=== PATIENT | female | born 1940 | race Caucasian/White ===

== ENCOUNTER → 2016-12-19 | Outpatient (CLI) | payer MEDICARE ==
[~2016-12-19] MED LIST: AMLO5TAB2 PO; ASCO10004 PO; ASPI-496 PO; CAPT100T2 PO; CARV6.2512 PO; CHOL10003 PO; GABA-826 PO; HYDR12.53 PO; INSU100V8 SQ; LISI-170 PO; LISI40TA PO; MECL25TA4 PO; METF10002 PO; METO50TA82 PO; OMEP-110 PO; RANI300T PO; SIMV20TA3 PO
[2016-12-19 10:16] LABS: PATH.CAST-FLAG NOT PRESENT; SPERM-FLAG NOT PRESENT; SRC-FLAG NOT PRESENT; XTAL-FLAG NOT PRESENT; YLC-FLAG NOT PRESENT
[2016-12-19 10:21] LABS: ASPARTATE AMINO TRANSFERASE 15 U/L (15-37); BLOOD UREA NITROGEN 22 mg/dL (7-18)
== END | disposition home or self-care (01) ==
LOC: STAR 08:34
PROVIDERS: ATTEND Orthopaedic Surgery
DX: Z01.818 Encounter for other preprocedural examination (principal); R94.31 Abnormal electrocardiogram [ECG] [EKG]; M17.12 Unilateral primary osteoarthritis, left knee; E11.9 Type 2 diabetes mellitus without complications; K21.9 Gastro-esophageal reflux disease without esophagitis; M81.0 Age-related osteoporosis without current pathological fracture; Z79.899 Other long term (current) drug therapy
CPT/HCPCS: 36415; 80053; 81001; 85025; 87077; 87081; 87086; 93005

== ENCOUNTER 2017-03-07 12:16 | Emergency (ER) | payer MEDICARE ==
[~2017-03-07] VITALS: Ht 152.4 cm; Wt 57.0 kg
[~2017-03-07 12:16] MED LIST changes: +ACET-1600 PO; +ASPI325T80 PO; +CELE200C PO; +CIPR500T87 PO; +DOCU-131 PO; +GABA600T2 PO; +HYDR-3240 PO
[2017-03-07] MEDS ORDERED: MORPHINE SULFATE 4 MG/ML, 1ML IVPush PRN (13:00)
[2017-03-07] MEDS ORDERED: SODIUM CHLORIDE 0.9% 1,000ML IVBOLUS ONE (13:00)
[2017-03-07] MEDS ORDERED: SODIUM CHLORIDE FLUSH 10ML SYR IVF ONE (13:00)
[2017-03-07] MEDS ORDERED: ONDANSETRON 2MG/ML, 2ML IVPush ONE (13:00)
[2017-03-07 13:34] LABS: PATH.CAST-FLAG NOT PRESENT; SPERM-FLAG NOT PRESENT; SRC-FLAG NOT PRESENT; XTAL-FLAG NOT PRESENT; YLC-FLAG NOT PRESENT
[2017-03-07 13:41] LABS: HEMATOCRIT 40.6 % (34.6-47.8); HEMOGLOBIN 13.3 g/dL (11.7-16.4); WHITE BLOOD COUNT 6.1 x10^3/uL (3.4-10)
[2017-03-07 13:47] LABS: BLOOD UREA NITROGEN 19 mg/dL (7-18)
[2017-03-07 13:54] LABS: ASPARTATE AMINO TRANSFERASE 15 U/L (15-37)
[2017-03-07 13:55] LABS: IS PT STATUS REG ER OR PRE ER? YES
[2017-03-07] MEDS ORDERED: MORPHINE SULFATE 4 MG/ML, 1ML ONE (14:02)
[2017-03-07] MEDS ORDERED: ONDANSETRON 2MG/ML, 2ML ONE (14:02)
[2017-03-07] MEDS ORDERED: ASPI-496 PO (14:12)
[2017-03-07 15:58] VITALS: BP 153/75
== END 2017-03-07 16:01 | disposition home or self-care (01) ==
LOC: ED 15:50
DX: K29.70 Gastritis, unspecified, without bleeding (principal)
CPT/HCPCS: 36415; 74177; 80053; 81001; 83690; 84484; 85025; 85610; 87086; 93005; 96361; 96374; 96375; 99285; J2405; J7030

== ENCOUNTER 2017-10-21 21:55 | Emergency (ER) | payer MEDICARE ==
[~2017-10-21] VITALS: Ht 157.5 cm; Wt 62.3 kg
[2017-10-21 22:26] LABS: BASOPHILS # (AUTO) 0.02 x10^3/uL (0-0.1); BASOPHILS % (AUTO) 0 % (0-1); EOSINOPHILS % (AUTO) 3 % (1-7); LYMPHOCYTES # (AUTO) 1.79 x10^3/uL (1-3.4); LYMPHOCYTES % (AUTO) 25 % (22-44); MD NO; MEAN CORPUSCULAR HEMOGLOBIN 28.4 pg (27.0-34.8); MEAN CORPUSCULAR HGB CONC 32.8 g/dL (32.4-35.8); MEAN CORPUSCULAR VOLUME 86.5 fL (80-100); MEAN PLATELET VOLUME 10.1 fL (7.4-10.4); MONOCYTES # (AUTO) 0.65 x10^3/uL (0.2-0.8); MONOCYTES % (AUTO) 9 % (2-9); NEUTROPHILS # (AUTO) 4.56 x10^3/uL (1.8-6.8); NEUTROPHILS % (AUTO) 63 % (42-75); PLATELET COUNT 228 x10^3/uL (130-400); RED BLOOD COUNT 5.12 x10^6/uL (3.82-5.3); RED CELL DISTRIBUTION WIDTH 14.8 % (9.6-15.2)
[2017-10-21] MEDS ORDERED: LIDOCAINE-MPF 1%, 5ML INFIL ONE ×2 (22:30→23:00)
[2017-10-21 22:38] LABS: ALBUMIN 3.8 g/dL (3.4-5.0); ANION GAP 5 mmol/L (5-15); CALCIUM 9.7 mg/dL (8.5-10.1); CHLORIDE 105 mmol/L (98-107); CREATININE 1.15 mg/dL (0.55-1.02)
[2017-10-21 22:43] LABS: TROPONIN I < 0.015 ng/mL (0.000-0.045)
[2017-10-21] MEDS ORDERED: LIDOCAINE-MPF 1%, 5ML ONE ×2 (22:55→23:14)
[2017-10-21] MEDS ORDERED: METOPROLOL 1 MG/ML, 5ML ONE (23:14)
[2017-10-21] MEDS: METOPROLOL 1 MG/ML, 5ML IVPush PRN (23:36)
[2017-10-22] MEDS ORDERED: METOPROLOL 1 MG/ML, 5ML ONE (00:22)
[2017-10-22] MEDS: METOPROLOL 1 MG/ML, 5ML IVPush PRN (00:36)
[2017-10-22 01:50] VITALS: BP 169/72
== END 2017-10-22 01:55 | disposition home or self-care (01) ==
LOC: ED 10-22 00:02
DX: S61.213A Laceration without foreign body of left middle finger without damage to nail, initial encounter (principal); I11.0 Hypertensive heart disease with heart failure; E11.9 Type 2 diabetes mellitus without complications; I50.9 Heart failure, unspecified; K21.9 Gastro-esophageal reflux disease without esophagitis; E78.5 Hyperlipidemia, unspecified; Z85.9 Personal history of malignant neoplasm, unspecified; Z90.49 Acquired absence of other specified parts of digestive tract; Z95.0 Presence of cardiac pacemaker; Z90.710 Acquired absence of both cervix and uterus; W26.8XXA Contact with other sharp object(s), not elsewhere classified, initial encounter; Y93.89 Activity, other specified; Y92.89 Other specified places as the place of occurrence of the external cause; Y99.8 Other external cause status
CPT/HCPCS: 12041; 36415; 71045; 80048; 82040; 84484; 85025; 93005; 96374; 96376

== ENCOUNTER 2017-10-30 16:03 | Emergency (ER) | payer MEDICARE ==
[~2017-10-30] VITALS: Ht 157.5 cm; Wt 62.0 kg
[2017-10-30 16:08] VITALS: BP 194/62
== END 2017-10-30 16:48 | disposition home or self-care (01) ==
LOC: ED 16:45
DX: S61.213D Laceration without foreign body of left middle finger without damage to nail, subsequent encounter (principal); E11.9 Type 2 diabetes mellitus without complications; E78.5 Hyperlipidemia, unspecified; Z48.02 Encounter for removal of sutures
CPT/HCPCS: 99282

== ENCOUNTER 2018-09-15 18:58 | Observation (INO) | payer MEDICARE, MEDICAID ==
[~2018-09-15] VITALS: Ht 157.5 cm; Wt 63.5 kg
[~2018-09-15 18:58] MED LIST changes: +AMLO-150 PO; -AMLO5TAB2 PO; -GABA600T2 PO; +GABA600T7 PO; +HYDR12.517 PO; -HYDR12.53 PO
--- NOTE | 2018-09-15 19:15 | NUR ---
Assumed care of patient. C/O epigastric pain radiating across the ABD to back. [facility] gave patient nitro x 2, which brought her pain from a 10 to a 7. 324mg ASA admin by [facility]. EKG done. Placed on NIBP, pulseox and hall monitor. Will continue to monitor.
[2018-09-15 19:25] LABS: BASOPHILS # (AUTO) 0.02 x10^3/uL (0-0.1); BASOPHILS % (AUTO) 0 % (0-1); EOSINOPHILS # (AUTO) 0.13 x10^3/uL (0-0.4); EOSINOPHILS % (AUTO) 1 % (1-7); LYMPHOCYTES # (AUTO) 0.72 x10^3/uL (1-3.4); LYMPHOCYTES % (AUTO) 7 % (22-44); MD NO; MEAN CORPUSCULAR HEMOGLOBIN 29.5 pg (27.0-34.8); MEAN CORPUSCULAR HGB CONC 33.3 g/dL (32.4-35.8); MEAN CORPUSCULAR VOLUME 88.6 fL (80-100); MEAN PLATELET VOLUME 10.1 fL (7.4-10.4); MONOCYTES # (AUTO) 0.71 x10^3/uL (0.2-0.8); MONOCYTES % (AUTO) 7 % (2-9); NEUTROPHILS # (AUTO) 8.37 x10^3/uL (1.8-6.8); NEUTROPHILS % (AUTO) 84 % (42-75); PLATELET COUNT 178 x10^3/uL (130-400); RED BLOOD COUNT 4.79 x10^6/uL (3.82-5.3); RED CELL DISTRIBUTION WIDTH 14.3 % (9.6-15.2)
[2018-09-15 19:34] LABS: ALANINE AMINOTRANSFERASE 60 U/L (12-78); ALBUMIN 3.6 g/dL (3.4-5.0); ANION GAP 8 mmol/L (5-15); CALCIUM 8.6 mg/dL (8.5-10.1); CHLORIDE 107 mmol/L (98-107); CREATININE 1.22 mg/dL (0.55-1.02)
[2018-09-15] MEDS ORDERED: ATOR40TA78 PO (19:35)
[2018-09-15] MEDS ORDERED: HYDROCHLOROTH12.5 MG PO (19:35)
[2018-09-15] MEDS ORDERED: METH5TAB6 PO (19:35)
[2018-09-15 19:38] LABS: ALKALINE PHOSPHATASE 63 U/L (45-117); BILIRUBIN,TOTAL 0.4 mg/dL (0.2-1.0); TOTAL PROTEIN 6.3 g/dL (6.4-8.2); TROPONIN I < 0.015 ng/mL (0.000-0.045)
--- NOTE | 2018-09-15 19:52 | NUR ---
x1 assist to the restroom. Steady gait.
--- NOTE | 2018-09-15 20:26 | NUR ---
VSS. Plan is for CTA of the chest for R/O PE.
--- NOTE | 2018-09-15 20:33 | NUR ---
Patient to CTA.
[2018-09-15] MEDS ORDERED: BISACODYL 10 MG SUPP PR PRN (21:30)
[2018-09-15] MEDS ORDERED: ATORVASTATIN 40 MG TABLET PO SCH (21:30)
[2018-09-15] MEDS ORDERED: ONDANSETRON ODT 4 MG PO PRN (21:30)
[2018-09-15] MEDS ORDERED: POLYETHYLENE GLYCOL 17 GM PACKET PO PRN (21:30)
[2018-09-15] MEDS ORDERED: ACETAMINOPHEN 325 MG TABLET PO PRN (21:30)
[2018-09-15] MEDS ORDERED: NITROGLYCERIN 0.4 MG BOTTLE (25 TABS) SL PRN (21:30)
[2018-09-15] MEDS ORDERED: morphine SULFATE 10 MG/ML, 1ML IVPush PRN (21:30)
[2018-09-15 22:10] LABS: HEMOGLOBIN A1C 8.3 % (4.2-6.3)
[2018-09-15 22:23] LABS: FREE T4 (FREE THYROXINE) 0.99 ng/dL (0.76-1.46)
[2018-09-15 22:33] VITALS: BP 150/71
[2018-09-15 22:52] LABS: MICROSCOPIC NOT IND
[2018-09-15 23:05] LABS: CULTURE INDICATED? NO
[2018-09-15] MEDS: METHIMAZOLE 5 MG TAB PO SCH (23:10)
[2018-09-15] MEDS: CARVEDILOL 25 MG TABLET PO SCH (23:10)
[2018-09-15] MEDS: SODIUM CHLORIDE FLUSH 10ML SYR IVF SCH (23:13)
[2018-09-15] MEDS: HEPARIN 5,000 UNITS/ML, 1ML SQ SCH (23:15)
[2018-09-16 00:39] VITALS: BP 143/72
[2018-09-16] MEDS ORDERED: OMNIPAQUE 350 MG/ML, 100ML BOTTLE ONE (01:19)
[2018-09-16 01:27] LABS: TROPONIN I < 0.015 ng/mL (0.000-0.045)
[2018-09-16] MEDS: HEPARIN 5,000 UNITS/ML, 1ML SQ SCH ×2 (05:13→13:30)
[2018-09-16] MEDS ORDERED: ASPIRIN 81 MG TABLET EC PO SCH (06:00)
[2018-09-16] MEDS: INSULIN LISPRO 100 UNITS/ML, PEN SQ-INSULIN SCH ×2 (07:00→12:12)
[2018-09-16 07:39] LABS: TROPONIN I < 0.015 ng/mL (0.000-0.045)
[2018-09-16 07:55] VITALS: BP 174/76
[2018-09-16] MEDS ORDERED: REGADENOSON 0.4 MG/5 ML SYRINGE ONE (08:12)
[2018-09-16] MEDS ORDERED: LISINOPRIL 20 MG TABLET PO SCH (09:00)
[2018-09-16] MEDS ORDERED: SENNA/DOCUSATE TABLET PO SCH (09:00)
[2018-09-16] MEDS: METHIMAZOLE 5 MG TAB PO SCH (09:00)
[2018-09-16] MEDS ORDERED: HYDROCHLOROTHIAZIDE 12.5 MG CAPSULE PO SCH (09:00)
[2018-09-16] MEDS: CARVEDILOL 25 MG TABLET PO SCH (09:07)
[2018-09-16] MEDS: SODIUM CHLORIDE FLUSH 10ML SYR IVF SCH (09:08)
[2018-09-16 12:11] VITALS: BP 161/71
[2018-09-16] MEDS ORDERED: ASPI81TA45 PO (14:11)
== END 2018-09-16 16:15 | disposition home or self-care (01) ==
LOC: ED 20:18 → EDIP 21:40 → 5SO 22:15
PROVIDERS: ADMIT Family Medicine; ATTEND Family Medicine
DX: R07.89 Other chest pain (principal); E03.9 Hypothyroidism, unspecified; E05.90 Thyrotoxicosis, unspecified without thyrotoxic crisis or storm; E11.65 Type 2 diabetes mellitus with hyperglycemia; E78.5 Hyperlipidemia, unspecified; I11.0 Hypertensive heart disease with heart failure; I50.9 Heart failure, unspecified; K21.9 Gastro-esophageal reflux disease without esophagitis; Z79.4 Long term (current) use of insulin; Z83.3 Family history of diabetes mellitus; Z85.3 Personal history of malignant neoplasm of breast; Z86.73 Personal history of transient ischemic attack (TIA), and cerebral infarction without residual deficits; Z90.11 Acquired absence of right breast and nipple; Z90.710 Acquired absence of both cervix and uterus; Z95.0 Presence of cardiac pacemaker
CPT/HCPCS: 36415; 71045; 71275; 78452; 80053; 81003; 82962; 83036; 83690; 84439; 84443; 84484; 85025; 85379; 93005; 93017; 96372; 99284; A9502; C9898; G0378; J1644; J1815; J2785; Q9967

== ENCOUNTER 2018-11-09 02:38 | Inpatient (IN) | payer MEDICARE, MEDICAID ==
[~2018-11-09] VITALS: Ht 160 cm; Wt 62.9 kg
[~2018-11-09 02:38] MED LIST changes: +ASPI81TA45 PO; +ATOR40TA78 PO; +HYDROCHLOROTH12.5 MG PO; +METH5TAB6 PO
--- NOTE | 2018-11-09 02:47 | NUR ---
BIB [facility] FROM HOME WITH C/O ABD PAIN, +N/V THAT STARTED AT 1800 YESTERDAY. PER EMT ON ARRIVAL PT WAS COOL, PALE AND DIAPHORETIC. 12 LEAD EKG SHOWED PACED RHYTHM, PT RECEIVED 324 MG ASPIRIN, 4 MG ZOFRAN AND 50 MCG [facility] RADIOLOGY SCHEDULER. MONITORS APPLIED, SIDERAILS UP X2, CALL LIGHT WITHIN REACH
[2018-11-09] MEDS ORDERED: ONDANSETRON 2MG/ML, 2ML IVPush ONE (03:00)
[2018-11-09] MEDS ORDERED: MORPHINE SULFATE 4 MG/ML, 1ML ONE (03:05)
[2018-11-09] MEDS ORDERED: ONDANSETRON 2MG/ML, 2ML ONE (03:06)
[2018-11-09] MEDS: MORPHINE SULFATE 4 MG/ML, 1ML IVPush PRN ×2 (03:07→07:48)
--- NOTE | 2018-11-09 03:09 | NUR ---
PT MEDICATED PER MAR
[2018-11-09 03:11] LABS: BASOPHILS % (AUTO) 0 % (0-1); EOSINOPHILS # (AUTO) 0.09 x10^3/uL (0-0.4); EOSINOPHILS % (AUTO) 1 % (1-7); LYMPHOCYTES # (AUTO) 0.63 x10^3/uL (1-3.4); LYMPHOCYTES % (AUTO) 8 % (22-44); MD NO; MEAN CORPUSCULAR HEMOGLOBIN 29.8 pg (27.0-34.8); MEAN CORPUSCULAR HGB CONC 32.5 g/dL (32.4-35.8); MEAN CORPUSCULAR VOLUME 91.7 fL (80-100); MONOCYTES # (AUTO) 0.39 x10^3/uL (0.2-0.8); MONOCYTES % (AUTO) 5 % (2-9); NEUTROPHILS # (AUTO) 6.96 x10^3/uL (1.8-6.8); NEUTROPHILS % (AUTO) 86 % (42-75); PLATELET COUNT 211 x10^3/uL (130-400); RED BLOOD COUNT 5.38 x10^6/uL (3.82-5.3); RED CELL DISTRIBUTION WIDTH 13.5 % (9.6-15.2)
[2018-11-09 03:24] LABS: ALBUMIN 4.1 g/dL (3.4-5.0); ANION GAP 5 mmol/L (5-15); CALCIUM 9.6 mg/dL (8.5-10.1); CHLORIDE 103 mmol/L (98-107)
--- NOTE | 2018-11-09 03:24 | NUR ---
urine sample taken to lab
[2018-11-09 03:31] LABS: MICROSCOPIC AUTO
[2018-11-09 03:31] LABS: ALANINE AMINOTRANSFERASE 31 U/L (12-78); ALKALINE PHOSPHATASE 74 U/L (45-117); BILIRUBIN,TOTAL 0.8 mg/dL (0.2-1.0); CREATININE 1.36 mg/dL (0.55-1.02); TOTAL PROTEIN 7.4 g/dL (6.4-8.2); TROPONIN I < 0.015 ng/mL (0.000-0.045)
[2018-11-09 03:35] LABS: CULTURE INDICATED? NO
--- NOTE | 2018-11-09 03:47 | NUR ---
pt to ct
[2018-11-09] MEDS ORDERED: OMNIPAQUE 350 MG/ML, 100ML BOTTLE ONE (03:53)
--- NOTE | 2018-11-09 04:00 | NUR ---
pt resting on gurney, denies needs, monitors in place, call light within reach. awaiting ct result
[2018-11-09] MEDS ORDERED: PROMETHAZINE 25 MG/ML, 1ML IM PRN (05:00)
[2018-11-09] MEDS ORDERED: MORPHINE SULFATE 4 MG/ML, 1ML IVPush PRN (05:00)
[2018-11-09] MEDS ORDERED: DOCUSATE 100 MG CAPSULE PO PRN (05:00)
[2018-11-09] MEDS ORDERED: ONDANSETRON ODT 4 MG PO PRN (05:00)
[2018-11-09] MEDS ORDERED: ACETAMINOPHEN 325 MG TABLET PO PRN (05:00)
[2018-11-09] MEDS ORDERED: ONDANSETRON 2MG/ML, 2ML IVPush PRN ×2 (05:00)
[2018-11-09] MEDS ORDERED: morphine SULFATE 10 MG/ML, 1ML IVPush PRN (05:00)
--- NOTE | 2018-11-09 05:05 | NUR ---
16 FR NG TUBE PLACED TO RIGHT NARES AND SECURED, PT TOLERATED WITHOUT DIFFICULTY, PLACEMENT CHECKED VIA ASPIRATION AND AUSCULTATION. NG TO LIS, JIMENES DRAINAGE NOTED.
[2018-11-09] MEDS: SODIUM CHLORIDE 0.9% 1,000 ML IV SCH ×3 (05:17→20:11)
[2018-11-09] MEDS ORDERED: HEPARIN 5,000 UNITS/ML, 1ML ONE (05:18)
[2018-11-09] MEDS: HEPARIN 5,000 UNITS/ML, 1ML SQ SCH ×3 (05:19→22:00)
[2018-11-09] MEDS ORDERED: ASPIRIN 81 MG TABLET EC PO SCH (06:00)
[2018-11-09 06:02] LABS: FREE T4 (FREE THYROXINE) 1.02 ng/dL (0.76-1.46); THYROID STIMULATING HORMONE 14.1 mIU/L (0.358-3.740)
--- NOTE | 2018-11-09 06:33 | NUR ---
PT RESTING CALMLY, DENIES NEEDS, MONITORS IN PLACE, NG TO LIS, IV FLUIDS INFUSING, CALL LIGHT WITHIN REACH. AWAITING ROOM TO BE CLEANED FOR TRANSFER
--- NOTE | 2018-11-09 06:53 | NUR ---
REPORT GIVEN TO ROBERT SIU
--- NOTE | 2018-11-09 06:55 | NUR ---
Received bedside report from ROBERT Pablo. All questions answered. Pt resting on gurney with PIV fluids infusing per [facility]. Pt connected to NIBP cuff, pulse ox monitor, and cardiac sonographer. NADN. No needs expressed. ED waiting for floor room to be cleaned before pt can transfer to floor. Call light within reach. Bedside rail up for safet measures.
--- NOTE | 2018-11-09 07:19 | NUR ---
Called floor and asked if room 355 was clean and ready. Floor stated "yes". Pt ready to transfer to floor from ED.
--- NOTE | 2018-11-09 07:34 | NUR ---
Assisted pt to bedside commode. AMAIRANI. No other needs expressed. Pt back to [facility].
--- NOTE | 2018-11-09 07:36 | NUR ---
Pt transfered to floor from ED and left with all personal belongings.
[2018-11-09 07:57] VITALS: BP 128/75
[2018-11-09] MEDS: LISINOPRIL 20 MG TABLET PO SCH (09:00)
[2018-11-09] MEDS: CARVEDILOL 25 MG TABLET PO SCH ×2 (09:00→21:00)
[2018-11-09] MEDS ORDERED: METHIMAZOLE 5 MG TAB PO SCH (09:00)
[2018-11-09] MEDS ORDERED: BENZOCAINE 20% SPRAY 0.5ML TP ONE (12:00)
[2018-11-09 15:31] VITALS: BP 167/76
[2018-11-09 17:31] LABS: HEMOGLOBIN A1C 8.1 % (4.2-6.3)
[2018-11-09 19:04] VITALS: BP 185/76
[2018-11-09] MEDS ORDERED: ATORVASTATIN 40 MG TABLET PO SCH (21:00)
[2018-11-10 00:57] VITALS: BP 161/70
[2018-11-10 01:04] VITALS: BP 166/72
[2018-11-10] MEDS: SODIUM CHLORIDE 0.9% 1,000 ML IV SCH (03:53)
[2018-11-10 04:55] LABS: ALBUMIN 3.3 g/dL (3.4-5.0); ANION GAP 8 mmol/L (5-15); CALCIUM 7.9 mg/dL (8.5-10.1); CHLORIDE 115 mmol/L (98-107); CREATININE 1.05 mg/dL (0.55-1.02)
[2018-11-10 04:57] LABS: BASOPHILS # (AUTO) 0.01 x10^3/uL (0-0.1); BASOPHILS % (AUTO) 0 % (0-1); EOSINOPHILS # (AUTO) 0.01 x10^3/uL (0-0.4); EOSINOPHILS % (AUTO) 0 % (1-7); LYMPHOCYTES # (AUTO) 0.75 x10^3/uL (1-3.4); LYMPHOCYTES % (AUTO) 17 % (22-44); MD NO; MEAN CORPUSCULAR HGB CONC 32.7 g/dL (32.4-35.8); MEAN CORPUSCULAR VOLUME 91.8 fL (80-100); MEAN PLATELET VOLUME 9.9 fL (7.4-10.4); MONOCYTES # (AUTO) 0.37 x10^3/uL (0.2-0.8); MONOCYTES % (AUTO) 9 % (2-9); NEUTROPHILS # (AUTO) 3.18 x10^3/uL (1.8-6.8); NEUTROPHILS % (AUTO) 74 % (42-75); PLATELET COUNT 158 x10^3/uL (130-400); RED CELL DISTRIBUTION WIDTH 14.2 % (9.6-15.2)
[2018-11-10 05:02] LABS: ALKALINE PHOSPHATASE 168 U/L (45-117); CHOL/HDL RATIO 1.7; CHOLESTEROL, TOTAL 102 mg/dL (140-239); HDL CHOL % 59 % (28-40); HDL CHOLESTEROL (DIRECT) 60 mg/dL (40-60); LDL CHOLESTEROL,CALCULATED 24 mg/dL (54-169); LDL/HDL RATIO 0.4 (0.5-3.0); TRIGLYCERIDES 89 mg/dL (50-200); VLDL CHOLESTEROL 18 mg/dL (0-25)
[2018-11-10 05:08] LABS: ALANINE AMINOTRANSFERASE 1867 U/L (12-78)
[2018-11-10] MEDS: HEPARIN 5,000 UNITS/ML, 1ML SQ SCH ×3 (06:00→22:06)
[2018-11-10 07:58] VITALS: BP 179/64
[2018-11-10] MEDS: CARVEDILOL 25 MG TABLET PO SCH ×2 (09:00→21:00)
[2018-11-10] MEDS: LISINOPRIL 20 MG TABLET PO SCH (09:00)
[2018-11-10] MEDS: SODIUM CHLORIDE 0.45% 1,000 ML IV SCH ×2 (09:39→17:00)
[2018-11-10 10:17] LABS: SALICYLATE LEVEL < 1.7 mg/dL (2.8-20.0)
[2018-11-10 13:25] VITALS: BP 177/68
[2018-11-10 13:26] LABS: AMPHETAMINE SCREEN, URINE Negative (Negative); BARBITURATE SCREEN, URINE Negative (Negative); BENZODIAZEPINE SCREEN, URINE Negative (Negative); CANNABINOID SCREEN, URINE Negative (Negative); COCAINE SCREEN, URINE Negative (Negative); METHADONE SCREEN, URINE Negative (Negative); OPIATE SCREEN, URINE Negative (Negative)
[2018-11-10] MEDS ORDERED: DEXTROSE 5% IV ONE ×3 (14:00→19:00)
[2018-11-10] MEDS ORDERED: ACETYLCYSTEINE IV ONE ×3 (14:00→19:00)
[2018-11-10 20:00] VITALS: BP 187/76
[2018-11-11 02:52] VITALS: BP 165/76
[2018-11-11 04:54] LABS: BASOPHILS # (AUTO) 0.01 x10^3/uL (0-0.1); BASOPHILS % (AUTO) 0 % (0-1); EOSINOPHILS # (AUTO) 0.01 x10^3/uL (0-0.4); EOSINOPHILS % (AUTO) 0 % (1-7); LYMPHOCYTES # (AUTO) 0.67 x10^3/uL (1-3.4); LYMPHOCYTES % (AUTO) 14 % (22-44); MD NO; MEAN CORPUSCULAR HEMOGLOBIN 30.2 pg (27.0-34.8); MEAN CORPUSCULAR HGB CONC 32.8 g/dL (32.4-35.8); MEAN CORPUSCULAR VOLUME 92.1 fL (80-100); MEAN PLATELET VOLUME 9.6 fL (7.4-10.4); MONOCYTES # (AUTO) 0.44 x10^3/uL (0.2-0.8); MONOCYTES % (AUTO) 9 % (2-9); NEUTROPHILS # (AUTO) 3.84 x10^3/uL (1.8-6.8); NEUTROPHILS % (AUTO) 77 % (42-75); PLATELET COUNT 163 x10^3/uL (130-400); RED BLOOD COUNT 4.29 x10^6/uL (3.82-5.3); RED CELL DISTRIBUTION WIDTH 13.8 % (9.6-15.2)
[2018-11-11 04:56] LABS: INTERNATIONAL NORMALIZED RATIO 1.02 (0.93-1.1); PROTHROMBIN TIME 10.7 Seconds (9.6-11.5)
[2018-11-11 05:05] LABS: ANION GAP 8 mmol/L (5-15); CALCIUM 8.1 mg/dL (8.5-10.1); CHLORIDE 112 mmol/L (98-107)
[2018-11-11 05:13] LABS: ALANINE AMINOTRANSFERASE 1026 U/L (12-78); ALKALINE PHOSPHATASE 125 U/L (45-117); BILIRUBIN,TOTAL 1.1 mg/dL (0.2-1.0); CREATININE 0.79 mg/dL (0.55-1.02); TOTAL PROTEIN 5.9 g/dL (6.4-8.2)
[2018-11-11] MEDS: HEPARIN 5,000 UNITS/ML, 1ML SQ SCH ×2 (05:47→15:36)
[2018-11-11 09:48] VITALS: BP 198/75
[2018-11-11] MEDS: LISINOPRIL 20 MG TABLET PO SCH (09:57)
[2018-11-11] MEDS: CARVEDILOL 25 MG TABLET PO SCH ×2 (09:57→19:46)
[2018-11-11] MEDS: hydrALAzine 20 MG/ML, 1ML IVPush PRN ×2 (09:58→15:36)
[2018-11-11] MEDS: SODIUM CHLORIDE 0.45% 1,000 ML IV SCH ×2 (10:08→18:07)
[2018-11-11 10:15] VITALS: BP 164/84
[2018-11-11 14:56] VITALS: BP 176/71
[2018-11-11 16:48] VITALS: BP 168/67
[2018-11-11 19:51] VITALS: BP 171/89
[2018-11-11] MEDS: OXYcodone IR 5MG TABLET PO PRN (22:10)
[2018-11-12] MEDS: HEPARIN 5,000 UNITS/ML, 1ML SQ SCH ×3 (01:37→16:52)
[2018-11-12 01:46] VITALS: BP 146/69
[2018-11-12] MEDS: SODIUM CHLORIDE 0.45% 1,000 ML IV SCH (02:26)
[2018-11-12 04:46] LABS: BASOPHILS # (AUTO) 0.01 x10^3/uL (0-0.1); BASOPHILS % (AUTO) 0 % (0-1); EOSINOPHILS # (AUTO) 0.08 x10^3/uL (0-0.4); EOSINOPHILS % (AUTO) 2 % (1-7); LYMPHOCYTES # (AUTO) 0.83 x10^3/uL (1-3.4); LYMPHOCYTES % (AUTO) 17 % (22-44); MD NO; MEAN CORPUSCULAR HEMOGLOBIN 30.1 pg (27.0-34.8); MEAN CORPUSCULAR HGB CONC 32.9 g/dL (32.4-35.8); MEAN CORPUSCULAR VOLUME 91.6 fL (80-100); MEAN PLATELET VOLUME 9.9 fL (7.4-10.4); MONOCYTES # (AUTO) 0.44 x10^3/uL (0.2-0.8); MONOCYTES % (AUTO) 9 % (2-9); NEUTROPHILS # (AUTO) 3.48 x10^3/uL (1.8-6.8); NEUTROPHILS % (AUTO) 72 % (42-75); PLATELET COUNT 158 x10^3/uL (130-400); RED BLOOD COUNT 4.31 x10^6/uL (3.82-5.3); RED CELL DISTRIBUTION WIDTH 13.6 % (9.6-15.2)
[2018-11-12 04:56] LABS: CHLORIDE 109 mmol/L (98-107)
[2018-11-12 05:06] LABS: ALANINE AMINOTRANSFERASE 597 U/L (12-78); ALBUMIN 2.8 g/dL (3.4-5.0); ALKALINE PHOSPHATASE 103 U/L (45-117); ANION GAP 8 mmol/L (5-15); BILIRUBIN,TOTAL 1.1 mg/dL (0.2-1.0); CALCIUM 8.2 mg/dL (8.5-10.1); CREATININE 0.77 mg/dL (0.55-1.02); TOTAL PROTEIN 5.4 g/dL (6.4-8.2)
[2018-11-12 06:30] VITALS: BP 162/69
[2018-11-12] MEDS: LISINOPRIL 20 MG TABLET PO SCH (08:48)
[2018-11-12] MEDS: CARVEDILOL 25 MG TABLET PO SCH ×2 (08:48→19:38)
[2018-11-12 14:41] VITALS: BP 132/62
[2018-11-12] MEDS: POTASSIUM CHLORIDE 10 MEQ in D5%-0.45% NACL 1,000 ML IV SCH (16:52)
[2018-11-12] MEDS ORDERED: POTASSIUM CHLORIDE 40 MEQ in SODIUM CHLORIDE 0.9% 500 ML IV ONE (17:00)
[2018-11-12 18:55] VITALS: BP 169/67
[2018-11-13] MEDS: OXYcodone IR 5MG TABLET PO PRN (00:01)
[2018-11-13] MEDS: hydrALAzine 20 MG/ML, 1ML IVPush PRN (00:02)
[2018-11-13 00:35] VITALS: BP 171/79
[2018-11-13 01:20] VITALS: BP 146/69
[2018-11-13] MEDS: POTASSIUM CHLORIDE 10 MEQ in D5%-0.45% NACL 1,000 ML IV SCH ×3 (02:11→22:59)
[2018-11-13] MEDS: HEPARIN 5,000 UNITS/ML, 1ML SQ SCH ×3 (02:11→20:41)
[2018-11-13 05:14] LABS: ALBUMIN 2.8 g/dL (3.4-5.0); ANION GAP 6 mmol/L (5-15); CALCIUM 8.3 mg/dL (8.5-10.1); CHLORIDE 107 mmol/L (98-107)
[2018-11-13 05:17] LABS: ALANINE AMINOTRANSFERASE 372 U/L (12-78); ALKALINE PHOSPHATASE 80 U/L (45-117); BASOPHILS # (AUTO) 0.01 x10^3/uL (0-0.1); BASOPHILS % (AUTO) 0 % (0-1); CREATININE 0.78 mg/dL (0.55-1.02); EOSINOPHILS # (AUTO) 0.11 x10^3/uL (0-0.4); EOSINOPHILS % (AUTO) 3 % (1-7); LYMPHOCYTES # (AUTO) 0.69 x10^3/uL (1-3.4); LYMPHOCYTES % (AUTO) 20 % (22-44); MD NO; MEAN CORPUSCULAR HEMOGLOBIN 29.6 pg (27.0-34.8); MEAN CORPUSCULAR HGB CONC 32.5 g/dL (32.4-35.8); MEAN CORPUSCULAR VOLUME 90.9 fL (80-100); MEAN PLATELET VOLUME 9.3 fL (7.4-10.4); MONOCYTES % (AUTO) 12 % (2-9); NEUTROPHILS # (AUTO) 2.23 x10^3/uL (1.8-6.8); NEUTROPHILS % (AUTO) 65 % (42-75); PLATELET COUNT 141 x10^3/uL (130-400); RED BLOOD COUNT 4.18 x10^6/uL (3.82-5.3); RED CELL DISTRIBUTION WIDTH 13.4 % (9.6-15.2); TOTAL PROTEIN 5.3 g/dL (6.4-8.2)
[2018-11-13 06:49] VITALS: BP 169/66
[2018-11-13] MEDS ORDERED: POTASSIUM CHLORIDE 20 MEQ TAB.ER.PRT PO ONE ×2 (08:00→11:00)
[2018-11-13] MEDS ORDERED: MAGNESIUM SULFATE PMX 2GM/50ML 50 ML IV ONE (08:00)
[2018-11-13] MEDS: CARVEDILOL 25 MG TABLET PO SCH ×2 (08:55→20:41)
[2018-11-13] MEDS: LISINOPRIL 20 MG TABLET PO SCH (08:55)
[2018-11-13 15:43] VITALS: BP 157/73
[2018-11-13] MEDS ORDERED: GLYCERIN ADULT SUPP PR PRN (17:00)
[2018-11-13 19:06] VITALS: BP 151/70
[2018-11-13] MEDS ORDERED: BISACODYL 10 MG SUPP PR PRN (21:00)
[2018-11-14] MEDS ORDERED: INSULIN LISPRO 100 UNITS/ML, PEN SQ-INSULIN ONE (00:30)
[2018-11-14 00:37] VITALS: BP 168/78
[2018-11-14] MEDS: HEPARIN 5,000 UNITS/ML, 1ML SQ SCH ×2 (04:13→16:58)
[2018-11-14 06:14] LABS: MEAN CORPUSCULAR HEMOGLOBIN 30.7 pg (27.0-34.8); MEAN CORPUSCULAR HGB CONC 34.1 g/dL (32.4-35.8); MEAN CORPUSCULAR VOLUME 90.1 fL (80-100); MEAN PLATELET VOLUME 9.3 fL (7.4-10.4); PLATELET COUNT 130 x10^3/uL (130-400); RED BLOOD COUNT 3.96 x10^6/uL (3.82-5.3); RED CELL DISTRIBUTION WIDTH 13.5 % (9.6-15.2)
[2018-11-14 06:19] LABS: CHLORIDE 109 mmol/L (98-107)
[2018-11-14 06:27] LABS: ALANINE AMINOTRANSFERASE 324 U/L (12-78); ALBUMIN 2.9 g/dL (3.4-5.0); ALKALINE PHOSPHATASE 89 U/L (45-117); ANION GAP 5 mmol/L (5-15); BILIRUBIN,TOTAL 0.7 mg/dL (0.2-1.0); CALCIUM 8.6 mg/dL (8.5-10.1); CREATININE 0.85 mg/dL (0.55-1.02); TOTAL PROTEIN 5.4 g/dL (6.4-8.2)
[2018-11-14 06:58] LABS: BASOPHILS # (AUTO) 0.01 x10^3/uL (0-0.1); BASOPHILS % (AUTO) 0 % (0-1); EOSINOPHILS # (AUTO) 0.08 x10^3/uL (0-0.4); EOSINOPHILS % (AUTO) 3 % (1-7); LYMPHOCYTES # (AUTO) 0.71 x10^3/uL (1-3.4); LYMPHOCYTES % (AUTO) 27 % (22-44); MD NO; MONOCYTES # (AUTO) 0.38 x10^3/uL (0.2-0.8); MONOCYTES % (AUTO) 15 % (2-9); NEUTROPHILS # (AUTO) 1.44 x10^3/uL (1.8-6.8); NEUTROPHILS % (AUTO) 55 % (42-75)
[2018-11-14 07:10] VITALS: BP 174/78
[2018-11-14] MEDS: LISINOPRIL 20 MG TABLET PO SCH (07:43)
[2018-11-14] MEDS: hydrALAzine 20 MG/ML, 1ML IVPush PRN (07:43)
[2018-11-14] MEDS: CARVEDILOL 25 MG TABLET PO SCH ×2 (07:43→21:17)
[2018-11-14] MEDS: SODIUM CHLORIDE 0.45% 1,000 ML IV SCH ×2 (09:04→16:30)
[2018-11-14] MEDS: INSULIN LISPRO 100 UNITS/ML, PEN SQ-INSULIN SCH ×4 (09:04→21:17)
[2018-11-14 13:22] VITALS: BP 159/69
[2018-11-14 19:21] VITALS: BP 176/81
[2018-11-15] MEDS: HEPARIN 5,000 UNITS/ML, 1ML SQ SCH ×2 (00:06→08:00)
[2018-11-15] MEDS: SODIUM CHLORIDE 0.45% 1,000 ML IV SCH ×2 (00:06→08:30)
[2018-11-15 00:40] VITALS: BP 165/78
[2018-11-15 06:05] LABS: ALBUMIN 2.8 g/dL (3.4-5.0); ANION GAP 6 mmol/L (5-15); CALCIUM 8.8 mg/dL (8.5-10.1); CHLORIDE 110 mmol/L (98-107)
[2018-11-15 06:10] LABS: ALANINE AMINOTRANSFERASE 301 U/L (12-78); ALKALINE PHOSPHATASE 95 U/L (45-117); BILIRUBIN,TOTAL 0.5 mg/dL (0.2-1.0); CREATININE 0.73 mg/dL (0.55-1.02); TOTAL PROTEIN 5.3 g/dL (6.4-8.2)
[2018-11-15 06:21] LABS: MD YES
[2018-11-15 06:22] LABS: MEAN CORPUSCULAR HEMOGLOBIN 30.2 pg (27.0-34.8); MEAN CORPUSCULAR VOLUME 91.4 fL (80-100); MEAN PLATELET VOLUME 9.7 fL (7.4-10.4); PLATELET COUNT 141 x10^3/uL (130-400); RED BLOOD COUNT 4.03 x10^6/uL (3.82-5.3); RED CELL DISTRIBUTION WIDTH 13.6 % (9.6-15.2)
[2018-11-15 06:23] LABS: BANDS%(MANUAL) 3 % (0-7); SEG#(MANUAL) 1.54 x10^3/uL (1.8-6.8); SEGS% (MANUAL) 48 % (42-75)
[2018-11-15 06:24] LABS: <PLATELET ESTIMATE> ADEQUATE; <PLT MORPHOLOGY> NORMAL PLT MORPH; <RBC MORPHOLOGY> NORMAL; BASOS#(MANUAL) 0.03 x10^3/uL (0-0.1); BASOS% (MANUAL) 1 % (0-1); EOS#(MANUAL) 0.19 x10^3/uL (0.0-0.4); EOS% (MANUAL) 6 % (1-7); LYMPH#(MANUAL) 0.93 x10^3/uL (1-3.4); LYMPHS% (MANUAL) 29 % (22-44); METAMYELOCYTES# (MANUAL) 0.13 x10^3/uL (0-0); METAMYELOCYTES% (MANUAL) 4 % (0-1); MONOS#(MANUAL) 0.26 x10^3/uL (0.3-2.7); MONOS% (MANUAL) 8 % (2-9); MYELOCYTES# (MANUAL) 0.03 x10^3/uL (0-0); MYELOCYTES% (MANUAL) 1 % (0-0)
[2018-11-15] MEDS ORDERED: MAGNESIUM SULFATE 3 GM in SODIUM CHLORIDE 0.9% 100 ML IV ONE (07:30)
[2018-11-15 08:10] VITALS: BP 197/74
[2018-11-15] MEDS: CARVEDILOL 25 MG TABLET PO SCH (09:41)
[2018-11-15] MEDS: LISINOPRIL 20 MG TABLET PO SCH (09:41)
[2018-11-15] MEDS: INSULIN LISPRO 100 UNITS/ML, PEN SQ-INSULIN SCH ×2 (09:42→12:31)
[2018-11-15] MEDS ORDERED: METF850T10 PO (10:19)
== END 2018-11-15 13:30 | disposition home or self-care (01) | DRG 388 ==
LOC: ED 02:44 → EDIP 04:46 → 3NE 07:46 → DCLOUNGE 11-15 13:17
PROVIDERS: ADMIT Internal Medicine; ATTEND Internal Medicine
DX: K56.51 Intestinal adhesions [bands], with partial obstruction (principal); N17.0 Acute kidney failure with tubular necrosis; E87.0 Hyperosmolality and hypernatremia; K56.7 Ileus, unspecified; E03.9 Hypothyroidism, unspecified; E05.90 Thyrotoxicosis, unspecified without thyrotoxic crisis or storm; E11.65 Type 2 diabetes mellitus with hyperglycemia; E78.5 Hyperlipidemia, unspecified; E87.6 Hypokalemia; I11.0 Hypertensive heart disease with heart failure; I50.9 Heart failure, unspecified; K21.9 Gastro-esophageal reflux disease without esophagitis; Z79.84 Long term (current) use of oral hypoglycemic drugs; Z85.3 Personal history of malignant neoplasm of breast; Z86.73 Personal history of transient ischemic attack (TIA), and cerebral infarction without residual deficits; Z90.11 Acquired absence of right breast and nipple; Z90.49 Acquired absence of other specified parts of digestive tract; Z90.710 Acquired absence of both cervix and uterus; Z95.0 Presence of cardiac pacemaker; K71.2 Toxic liver disease with acute hepatitis; T38.2X5A Adverse effect of antithyroid drugs, initial encounter
CPT/HCPCS: 36415; 74018; 74177; 74250; 76700; 80053; 80061; 80074; 80307; 81001; 82140; 82550; 82962; 83036; 83690; 83735; 84100; 84439; 84443; 84484; 85025; 85610; 87806; 93005; 93306; 96374; G0378; J0132; J1644; J2405; J3475; J3480; J7060; J7070; Q0162; Q9967; G0475; J0360; J1815; J2270; J7030; J7040